=== PATIENT | female | born 1960 | race Asian ===

== ENCOUNTER 2019-02-10 13:59 | Inpatient (IN) | payer OTHER ==
[~2019-02-10] VITALS: Ht 157.5 cm; Wt 51.7 kg
[2019-02-10 14:11] VITALS: Ht 157.5 cm; Wt 51.7 kg
[2019-02-10 15:10] LABS: BASOPHIL % 0.9 % (0-2); PLATELET COUNT 367 x10^3mcL (130-400); RED CELL DISTRIBUTION WIDTH 14.3 % (11.5-14.5)
[2019-02-10 15:31] LABS: CALCIUM 9.9 mg/dL (8.5-10.1); CARBON DIOXIDE 30.1 mmol/L (21-32); CREATININE SERUM 1.1 mg/dL (0.6-1.0); POTASSIUM SERUM 3.4 mmol/L (3.5-5.1)
[2019-02-10 15:36] LABS: ALBUMIN 3.4 g/dL (3.4-5.0); BILIRUBIN TOTAL 0.22 mg/dL (0.20-1.00); TOTAL PROTEIN, SERUM 7.5 g/dL (6.4-8.2)
[2019-02-10] MEDS ORDERED: BRILINTA90 M1 PO (19:07)
[2019-02-10] MEDS ORDERED: ATENOLOL50 MG PO (19:08)
[2019-02-10] MEDS ORDERED: ASPIRIN ADULT L81 M3 PO (19:08)
[2019-02-10] MEDS ORDERED: ZESTRIL5 MG PO (19:08)
[2019-02-10] MEDS ORDERED: ACETAMINOPHEN-H1 TA1 PO (19:10)
[2019-02-10] MEDS ORDERED: ZOF4 PO (19:11)
[2019-02-10 19:32] LABS: MAGNESIUM 2.2 mg/dL (1.8-2.4); PHOSPHOROUS 3.4 mg/dL (2.5-4.9)
[2019-02-10 20:03] VITALS: BP 139/78
[2019-02-11] VITALS (7 sets, daily range): BP systolic 139–195; BP diastolic 71–87
[2019-02-11 06:38] LABS: BASOPHIL % 0.8 % (0-2); PLATELET COUNT 329 x10^3mcL (130-400)
[2019-02-11 06:58] LABS: CALCIUM 9.6 mg/dL (8.5-10.1); CARBON DIOXIDE 27.3 mmol/L (21-32); CHLORIDE SERUM 110 mmol/L (98-107); CREATININE SERUM 0.7 mg/dL (0.6-1.0); GFR1 > 60 mL/min; GLUCOSE SERUM 113 mg/dL (74-106); POTASSIUM SERUM 3.6 mmol/L (3.5-5.1); SODIUM SERUM 147 mmol/L (136-145)
[2019-02-11 07:00] LABS: RED CELL DISTRIBUTION WIDTH 15.3 % (11.5-14.5)
[2019-02-11 13:04] LABS: UA SPECIFIC GRAVITY <=1.005 (1.005-1.035); microscopic required? YES; urine erythrocyte NEGATIVE (NEGATIVE)
== END 2019-02-11 19:30 | disposition home or self-care (01) | DRG 305 ==
LOC: ED 13:59 → DU 18:50 → EDBEDREQ 18:51 → DU 20:28
PROVIDERS: Emergency Medicine; ADMIT General Practice
DX: I16.1 Hypertensive emergency (principal); E11.65 Type 2 diabetes mellitus with hyperglycemia; H53.8 Other visual disturbances; G40.909 Epilepsy, unspecified, not intractable, without status epilepticus; I16.0 Hypertensive urgency; E78.5 Hyperlipidemia, unspecified; E87.6 Hypokalemia; Z79.82 Long term (current) use of aspirin; Z79.84 Long term (current) use of oral hypoglycemic drugs
CPT/HCPCS: 82962; 83880; J0360; Q0092